=== PATIENT | male | born 1970 | race Caucasian/White ===

== ENCOUNTER 2021-02-22 00:48 | Emergency (ER) | payer MEDICAID, OTHER ==
[~2021-02-22] VITALS: Ht 167.6 cm; Wt 61.7 kg
--- NOTE | 2021-02-22 01:03 | NUR ---
covid swab taken and sent to lab
--- NOTE | 2021-02-22 01:07 | NUR ---
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
[2021-02-22] MEDS ORDERED: KETOROLAC TROMETHAMINE INJ 30 MG/ML VIAL ONE (01:50)
--- NOTE | 2021-02-22 02:02 | NUR ---
left hand #20 , blood drawn and taken to lab.
--- NOTE | 2021-02-22 02:03 | NUR ---
urine speciemen taken to lab
--- NOTE | 2021-02-22 02:03 | NUR ---
PT BEING TAKEN TO CT
[2021-02-22] MEDS: KETOROLAC TROMETHAMINE INJ 30 MG/ML VIAL IV ONE (02:04)
--- NOTE | 2021-02-22 02:04 | NUR ---
PT WAS TAKEN TO CT
[2021-02-22 02:07] LABS: BILIRUBIN,URINE Negative (NEGATIVE); COLOR,URINE YELLOW (YELLOW); LEUKOCYTE ESTERASE ,URINE Negative (NEGATIVE); NITRITE, URINE Negative (NEGATIVE); PH,URINE 7.5 (5.0-8.0); PROTEIN,URINE Negative (NEGATIVE); UGLUCOSE Negative (NEGATIVE); UROBILINOGEN,URINE 0.2 EU/dL (0.2)
--- NOTE | 2021-02-22 02:14 | NUR ---
patient back from ct
[2021-02-22] MEDS: IV NS 0.9% 500 ML BAG IV ONE (02:18)
[2021-02-22 02:20] LABS: BASOPHILS % (AUTO) 0.3 % (0.0-2.0); EOSINOPHILS % (AUTO) 0.7 % (0.0-6.0); HEMATOCRIT 41 % (39-51); HEMOGLOBIN 13.4 g/dL (13.5-17.5); LYMPHOCYTES # (AUTO) 2.6 K/uL (0.8-4.8); MEAN CORPUSCULAR HGB CONC 33 g/dl (31.0-36.0); MEAN CORPUSCULAR VOLUME 90 fL (80-96); MONOCYTES # (AUTO) 1.4 K/uL (0.1-1.30); NEUTROPHILS # (AUTO) 11.4 K/uL (1.8-8.9); PLATELET COUNT (AUTO) 222 K/uL (150-450); RED BLOOD CELL COUNT(AUTO) 4.57 MIL/uL (4.5-6.0); WHITE BLOOD COUNT (AUTO) 15.6 K/uL (4.3-11.0)
[2021-02-22 02:27] LABS: CALCIUM, SERUM 8.5 mg/dL (8.5-10.1); CREATININE 0.9 mg/dL (0.6-1.3); POTASSIUM 3.9 mmol/L (3.5-5.1)
[2021-02-22 02:31] LABS: ALBUMIN 3.4 g/dL (3.4-5.0); BILIRUBIN,DIRECT 0.1 mg/dL (0.0-0.2); BILIRUBIN,TOTAL 0.3 mg/dL (0.2-1.0); TOTAL PROTEIN, SERUM 7.9 g/dL (6.4-8.2)
--- NOTE | 2021-02-22 03:14 | NUR ---
xray at bedside
--- NOTE | 2021-02-22 03:50 | NUR ---
Patient discharged to home in stable condition. Written and verbal after care instructions given. Patient verbalizes understanding of instruction. ambulated out of ER with a steady gait.
[2021-02-22 03:51] VITALS: BP 117/76
== END 2021-02-22 03:54 | disposition home or self-care (01) ==
LOC: ER 00:51
DX: R10.9 Unspecified abdominal pain (principal); M79.10 Myalgia, unspecified site; Z20.822 Contact with and (suspected) exposure to COVID-19; E03.9 Hypothyroidism, unspecified; Z88.0 Allergy status to penicillin; R03.0 Elevated blood-pressure reading, without diagnosis of hypertension
CPT/HCPCS: 36415; 71045; 74176; 80048; 80076; 81003; 83690; 85025; 87426; 96374; 99285; C9803; J1885; J7030

== ENCOUNTER 2021-06-27 17:32 | Emergency (ER) | payer MEDICAID ==
[~2021-06-27] VITALS: Ht 177.8 cm; Wt 79.4 kg
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
[2021-06-27] MEDS ORDERED: CYCLOBENZAPRINE 10 MG TABLET ONE (17:46)
[2021-06-27] MEDS ORDERED: KETOROLAC TROMETHAMINE INJ 30 MG/ML VIAL ONE (17:46)
--- NOTE | 2021-06-27 17:51 | NUR ---
AT BEDSIDE FOR EVAL.
[2021-06-27] MEDS ORDERED: CYCLOBENZAPRINE 10 MG TABLET PO ONE (18:00)
[2021-06-27] MEDS ORDERED: KETOROLAC TROMETHAMINE INJ 30 MG/ML VIAL IM ONE ×2 (18:00→18:30)
--- NOTE | 2021-06-27 18:18 | NUR ---
PT IS BACK FROM THE CT SCAN.
[2021-06-27] MEDS ORDERED: KETOROLAC TROMETHAMINE 15 MG/ML VIAL ONE (18:27)
[2021-06-27] MEDS ORDERED: ACETAMINOPHEN ES 500 MG TABLET ONE (18:27)
[2021-06-27] MEDS ORDERED: ACETAMINOPHEN ES 500 MG TABLET PO ONE (18:30)
[2021-06-27] MEDS ORDERED: CYCL5TAB PO (19:04)
[2021-06-27] MEDS ORDERED: IBUP-1957 PO (19:04)
--- NOTE | 2021-06-27 19:10 | NUR ---
AT BEDSIDE TO EXPLAIN THE RESULT OF THE CT SCAN AND DISCHARGED PLAN.
--- NOTE | 2021-06-27 19:14 | NUR ---
Patient discharged to home in stable condition. Written and verbal after care instructions given. Patient verbalizes understanding of instruction.
[2021-06-27 19:16] VITALS: BP 141/91
== END 2021-06-27 19:16 | disposition home or self-care (01) ==
LOC: ER 17:35
DX: M54.50 Low back pain, unspecified (principal); E03.9 Hypothyroidism, unspecified; E78.00 Pure hypercholesterolemia, unspecified; Z88.0 Allergy status to penicillin; Z79.899 Other long term (current) drug therapy
CPT/HCPCS: 72131; 96372 ×2; 99284; J1885 ×2

== ENCOUNTER 2022-05-22 01:19 | Emergency (ER) | payer MEDICAID ==
[~2022-05-22] VITALS: Ht 175.3 cm; Wt 83.9 kg
[~2022-05-22 01:19] MED LIST: CYCL5TAB PO; IBUP-1957 PO
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
[2022-05-22] MEDS ORDERED: IBUPROFEN 400 MG TABLET ONE (02:17)
[2022-05-22] MEDS ORDERED: IBUPROFEN 400 MG TABLET PO ONE (02:30)
[2022-05-22] MEDS ORDERED: NAPR-1009 PO (06:49)
--- NOTE | 2022-05-22 06:57 | NUR ---
PT OK TO DISCHARGE PER DR PERALTA. Patient discharged in custody of [employer] in stable condition. Written and verbal after care instructions given. Patient verbalizes understanding of instruction. Patient is awake and alert to self, day, and place. pt ambulatory with a steady gait
[2022-05-22 06:59] VITALS: BP 140/80
--- NOTE | 2022-05-22 06:59 | NUR ---
Patient discharged to [facility] in stable condition. Written and verbal after care instructions given. Patient verbalizes understanding of instruction.
--- NOTE | 2022-05-22 08:55 | NUR ---
CALLED [facility] FOR MD TO MD CALL BACK AWAITING A CALL BACK
== END 2022-05-22 07:00 ==
LOC: ER 01:21
DX: S39.92XA Unspecified injury of lower back, initial encounter (principal); G89.29 Other chronic pain; E78.00 Pure hypercholesterolemia, unspecified; E03.9 Hypothyroidism, unspecified; F17.200 Nicotine dependence, unspecified, uncomplicated; Z60.2 Problems related to living alone; Z79.899 Other long term (current) drug therapy; Z88.0 Allergy status to penicillin; V89.2XXA Person injured in unspecified motor-vehicle accident, traffic, initial encounter; Y93.89 Activity, other specified; Y92.89 Other specified places as the place of occurrence of the external cause; Y99.8 Other external cause status
CPT/HCPCS: 72110-TC